=== PATIENT | female | born 1995 | race Hispanic/Latino ===

== ENCOUNTER 2018-11-07 14:26 | Emergency (ER) | payer BC ==
--- NOTE | 2018-11-07 15:35 | CT ---
Date of service: 11/07/2018 PROCEDURE: CT MAXILLOFACIAL BONES WITHOUT CONTRAST HISTORY: Left infraorbital ecchymoses and tenderness. COMPARISON: None available. TECHNIQUE: Contiguous axial CT images of the maxillofacial bones were obtained. Coronal and sagittal reformats were generated. Radiation dose: Total exam DLP = 789.49 mGy-cm. This CT exam was performed using one or more of the following dose reduction techniques: Automated exposure control, adjustment of the mA and/or kV according to patient size, and/or use of iterative reconstruction technique. FINDINGS: Limitations: Artifacts generated by left nose ring as well as bilateral earrings, all of which the patient is unable to remove. NASAL BONES: No acute fracture or destructive bony lesion identified. ORBITS: Mild left infraorbital/cheek soft tissue edema is appreciated. No postseptal orbital cellulitis pattern evident bilaterally. Right right periorbital soft tissue is unremarkable. PARANASAL SINUSES/ MASTOIDS: Prominent left maxillary sinusitis evident. Questionable prominent maxillary ostia versus postoperative change. MAXILLA: No acute fracture or destructive bony lesion identified. MANDIBLE/ TEMPOROMANDIBULAR JOINTS: No acute fracture or destructive bony lesion identified. SKULL BASE: Unremarkable. TEMPORAL BONES: Middle ears and mastoid grossly unremarkable. OTHER FINDINGS: None. IMPRESSION: 1. Mild left cheek/infraorbital preseptal cellulitis pattern. No abscess identified. No postseptal involvement. 2. No facial fracture or bony destructive lesion appreciable overall. 3. Incidental prominence of the bilateral maxillary ostia versus potential postoperative change. 4. Prominent left maxillary sinus disease.
--- NOTE | 2018-11-07 15:49 | CT ---
Date of service: 11/07/2018 PROCEDURE: CT HEAD WITHOUT CONTRAST. HISTORY: Headache, woke up with Facial contusion. COMPARISON: None available. TECHNIQUE: Axial computed tomography images were obtained through the head/brain without intravenous contrast. Radiation dose: Total exam DLP = 1066.9 mGy-cm. This CT exam was performed using one or more of the following dose reduction techniques: Automated exposure control, adjustment of the mA and/or kV according to patient size, and/or use of iterative reconstruction technique. FINDINGS: HEMORRHAGE: No intracranial hemorrhage. BRAIN: Normal roberts-white matter differentiation and density are appreciated throughout the cerebrum and cerebellum with the brainstem appearing unremarkable as well. There is no mass effect. There is no suspicious extra-axial fluid collection and the midline brain anatomy appears diffusely unremarkable. VENTRICLES: Unremarkable. No hydrocephalus. CALVARIUM: Unremarkable. PARANASAL SINUSES: Unremarkable as visualized. No significant inflammatory changes. MASTOID AIR CELLS: Unremarkable as visualized. No inflammatory changes. OTHER FINDINGS: None. IMPRESSION: Unremarkable unenhanced head CT.
[2018-11-07] MEDS ORDERED: Naproxen 550 mg Tab PO STA (15:54)
--- NOTE | 2018-11-07 15:58 | C.PDOC ---
History Of Present Illness Pt states she woke up this morning with a bruise on her left cheek. Time Seen by Provider: 11/07/18 14:40 Chief Complaint (Nursing): Abnormal Skin Integrity History Per: Patient Patient States: Other (Does not recall) Severity: Moderate Additional History Per: Prior Records Past Medical History Reviewed: Historical Data, Nursing Documentation, Vital Signs Vital Signs: Last Vital Signs Temp 98.2 F 11/07/18 14:33 Pulse 98 H 11/07/18 14:33 Resp 18 11/07/18 14:33 BP 138/88 11/07/18 14:33 Pulse Ox 97 11/07/18 14:33 - Medical History PMH: Arthritis Family History: States: Unknown Family Hx - Social History Hx Alcohol Use: Yes Hx Substance Use: No - Immunization History Hx Tetanus Toxoid Vaccination: No Hx Influenza Vaccination: No Hx Pneumococcal Vaccination: No Review Of Systems Except As Marked, All Systems Reviewed And Found Negative. Constitutional: Negative for: Fever Eyes: Negative for: Pain, Vision Change, Conjunctivae Inflammation, Eyelid Inflammation ENT: Positive for: Nose Congestion. Negative for: Throat Pain Cardiovascular: Negative for: Chest Pain Respiratory: Negative for: Shortness of Breath Gastrointestinal: Negative for: Vomiting, Abdominal Pain Skin: Negative for: Rash Neurological: Positive for: Headache. Negative for: Weakness, Numbness, Seizures Physical Exam - Physical Exam Appears: Non-toxic, No Acute Distress Skin: Warm, Dry Head: Other (Ecchymosis, left infra-orbital) Eye(s): bilateral: PERRL, EOMI Neck: Normal ROM, No Midline Cervical Tenderness, No Step Off Deformity, Supple Extremity: Normal ROM Neurological/Psych: Oriented x3, Normal Speech, Normal Cognition, Normal Cranial Nerves, Normal Motor, Normal Sensation ED Course And Treatment O2 Sat by Pulse Oximetry: 97 Pulse Ox Interpretation: Normal - Radiology Nexus Criteria: Negative - CT Scan/US CT head Other Rad Studies (CT/US): Read By Radiologist, Radiology Report Reviewed CT/US Interpretation: IMPRESSION: Unremarkable unenhanced head CT. CT Facial bones Other Rad Studies (CT/US): Read By Radiologist, Radiology Report Reviewed CT/US Interpretation: IMPRESSION: 1. Mild left cheek/infraorbital preseptal cellulitis pattern. No abscess identified. No postseptal involvement. 2. No facial fracture or bony destructive lesion appreciable overall. 3. Incidental prominence of the bilateral maxillary ostia versus potential postoperative change. 4. Prominent left maxillary sinus disease. Disposition Counseled Patient/Family Regarding: Studies Performed, Diagnosis, Need For Followup, Rx Given - Disposition Referrals: Gordy Jasso MD [Staff Provider] - Disposition: HOME/ ROUTINE Disposition Time: 16:00 Condition: STABLE Additional Instructions: Follow up with an ENT specialist for further evaluation and treatment. Return to the ER if you develop fever, worsening of symptoms or if you have any other concerns. Prescriptions: Doxycycline Hyclate 100 mg PO BID #20 capsule Fluticasone Nasal [Flonase] 2 spr NS BID #1 spr Instructions: Sinusitis, Adult (DC) Forms: [employer] (Spanish) - Clinical Impression Clinical Impression: Facial contusion, Left maxillary sinusitis
[2018-11-07] MEDS ORDERED: Naproxen 550 mg Tab PO ONE (16:03)
[2018-11-07 16:08] VITALS: BP 123/80; PULSE 88; RESP 16; TEMP 98.1; O2SAT 99
== END 2018-11-07 16:11 | disposition home or self-care (01) ==
LOC: C.ER 14:26
DX: S00.83XA Contusion of other part of head, initial encounter (principal); X58.XXXA Exposure to other specified factors, initial encounter; J32.0 Chronic maxillary sinusitis